=== PATIENT | male | born 1980 | race Caucasian/White ===

== ENCOUNTER 2018-03-04 20:37 | Emergency (ER) | payer SELFPAY ==
[~2018-03-04] VITALS: Ht 185.4 cm; Wt 100.4 kg
[~2018-03-04 20:37] MED LIST: ABILIFY15 MG PO; ASPIR-TRIN325 M1; ATIVAN0.5 MG PO; CELEXA10 M1 PO; LITHIUM CARBON150 MG; TRAZODONE HCL100 MG PO
[2018-03-04] MEDS ORDERED: MEDROL DOSEPAK4 MG PO (23:30)
[2018-03-04] MEDS ORDERED: VALIUM5 MG PO (23:30)
[2018-03-04] MEDS ORDERED: PERCOCET 5/31 TABLET PO (23:30)
[2018-03-04 23:57] VITALS: BP 138/74
== END 2018-03-04 23:58 | disposition home or self-care (01) ==
LOC: EME 20:37
DX: M54.5 Low back pain (principal); M41.86 Other forms of scoliosis, lumbar region; M51.36 Other intervertebral disc degeneration, lumbar region; Z88.0 Allergy status to penicillin; F17.200 Nicotine dependence, unspecified, uncomplicated
CPT/HCPCS: 72100; 99281; 99284; J1885; J3010; J7512